=== PATIENT | female | born 1960 ===

== ENCOUNTER 2024-11-28 04:10 | Outpatient (CLI) | payer SELFPAY ==
--- NOTE | 2024-11-28 12:34 | W.NUTRFU ---
Date of service: 11/28/24 Time of Service: 10:00 Nutrition Note NOTE: Rebecca referred to nutrition to help with management of hyperlipidemia, hypertriglyceridemia. She is suspect of medications and wants to work on diet/lifestyle first. no labs sent with referral. No anthrompometrics sent with referral - no weight today but Rebecca is aware some weight loss may be appropriate. I pointed Rebecca to whole foods, plant-based eating pattern as much as possible. She is not adverse to produce and currently eats meat - I pointed out that a good goal would be to just increase amount of protein from plants to hit fiber goal of at least 25 grams most days. Suggested looking into plant sterol/stanol supplement and work regular food and drink choices in known to cardiovascular support like hibiscus tea, legumes, berries , geens, garlic/onion family, intact grains, whole soy, and more. showed Rebecca a resource for menu planning a realistic meal pattern with some sample menus that meet the following parameters: 170g total carbs, 125g protein, 56g total fat with at least 25 g fiber and no more than 35g added sugars. Also suggested etoh avoidance and address exercise, stress mgt and sleep if these are of concern. Pointed to resources like [employer] diet if she wants to get real aggressive but highlighted that increasing fiber, reducing added sugar and refined carbs and meeting protein needs while getting some exercise will help out tremendously. Has my contact info for any questions or desire for follow up Time Spent in Nutritional Counseling and Treatment: 25 min
== END 2024-11-28 04:11 | disposition home or self-care (01) ==
LOC: DS 04:10
PROVIDERS: Visit Provider Dietitian, Registered
DX: E78.5 Hyperlipidemia, unspecified (principal)
CPT/HCPCS: 00123; 97802